=== PATIENT | female | born 1995 | race African-American/Black ===

== ENCOUNTER 2023-01-06 13:41 | Inpatient (IN) | payer OTHER ==
[2023-01-06] MEDS ORDERED: levETIRAcetam 500 MG/5 ML INJECTION VIAL IVPB ONE ×3 (14:59→15:37)
[2023-01-06 15:49] LABS: BASO % 0.7 % (0-2.0); EOS % 3.1 % (0-4.5); HEMATOCRIT 34.6 % (32.4-45.2); HEMOGLOBIN 10.8 GM/dL (10.7-15.3); LYMPH % 31.2 % (8-40); MCH 23.2 pg (25.7-33.7); MCHC 31.2 g/dl (32.0-36.0); MEAN CELL VOLUME 74.4 fl (80-96); MEAN PLT VOLUME 8.7 fl (7.5-11.1); MONO % 5.9 % (3.8-10.2); NEUT % 59.1 % (42.8-82.8); PLATELET COUNT 219 10^3/uL (134-434); RBC 4.65 M/mm3 (3.60-5.2); RDW 19.3 % (11.6-15.6); WHITE BLOOD COUNT 5.9 K/mm3 (4.0-10.0)
[2023-01-06 15:55] LABS: INR 1.17 (0.83-1.09); PROTHROMBIN TIME (PATIENT) 13.6 SEC (9.7-13.0)
[2023-01-06 15:58] LABS: ACTIVATED PTT 31.4 SECONDS (25.2-36.5)
[2023-01-06 16:18] LABS: POTASSIUM 4.3 mmol/L (3.5-5.1)
[2023-01-06 16:20] LABS: CALCIUM 8.7 mg/dL (8.5-10.1)
[2023-01-06 16:21] LABS: ALBUMIN 3.3 g/dl (3.4-5.0)
[2023-01-06 16:24] LABS: CREATININE 0.7 mg/dL (0.55-1.3)
[2023-01-06 16:26] LABS: BILIRUBIN,TOTAL 0.3 mg/dL (0.2-1); TOT PROT 7.5 g/dl (6.4-8.2)
[2023-01-06] MEDS ORDERED: LORazepam 2 MG/ML SDV VIAL IVPUSH ONE (16:57)
[2023-01-06] MEDS ORDERED: ONDANSETRON 4 MG/2 ML VIAL IVPUSH PRN (17:52)
[2023-01-06 20:18] LABS: EPI CELLS 20 /uL (0-25.1); HYALINE CASTS 0 /uL (0-3.1); URINE APPEARANCE CLEAR; URINE BACTERIA 211 /uL (0-1359); URINE BILIRUBIN NEGATIVE (NEGATIVE); URINE COLOR YELLOW; URINE GLUCOSE (UA) NEGATIVE (NEGATIVE); URINE KETONE NEGATIVE (NEGATIVE); URINE LEUK ESTERASE NEGATIVE (NEGATIVE); URINE NITRITE NEGATIVE (NEGATIVE); URINE PROTEIN NEGATIVE (NEGATIVE); URINE RBC 65 /uL (0-23.9); URINE WBC 19 /uL (0-25.8)
[2023-01-06 20:59] LABS: COCAINE, UR NEGATIVE (NEGATIVE); OPIATES, URI NEGATIVE (NEGATIVE); URINE AMPHETAMINES NEGATIVE (NEGATIVE)
[2023-01-06 21:00] LABS: METHADONE, UR NEGATIVE (NEGATIVE); PHENCYCLIDINE,URINE NEGATIVE (NEGATIVE); URINE BARBITURATES NEGATIVE (NEGATIVE)
[2023-01-06 21:04] LABS: URINE BENZODIAZEPINES POSITIVE (NEGATIVE)
[2023-01-06] MEDS ORDERED: VALPROATE SODIUM 250 MG/5 ML UNIT DOSE CUP PO SCH (22:00)
[2023-01-06] MEDS ORDERED: ACETAMINOPHEN 500 MG TABLET (FP) PO PRN (22:36)
[2023-01-06] MEDS ORDERED: hydrOXYzine PAMOATE 50 MG CAPSULE (FP) ONE (22:37)
[2023-01-06] MEDS ORDERED: DIVALPROEX SODIUM 500 MG TABLET E.C. ONE (22:37)
[2023-01-06] MEDS ORDERED: QUEtiapine FUMARATE 100 MG TABLET (FP) ONE (22:37)
[2023-01-06] MEDS ORDERED: ACETAMINOPHEN 500 MG TABLET (FP) ONE (22:39)
[2023-01-06] MEDS: DIVALPROEX SODIUM 500 MG TABLET E.C. PO SCH (22:45)
[2023-01-06] MEDS: QUEtiapine FUMARATE 200 MG TABLET PO SCH (22:45)
[2023-01-06] MEDS: hydrOXYzine PAMOATE 50 MG CAPSULE (FP) PO SCH (22:45)
[2023-01-06] MEDS: OXcarbazepine 300 MG TABLET (UD) PO SCH (22:59)
[2023-01-07 03:24] VITALS: BMI 39.0
[2023-01-07 08:22] LABS: BASO % 0.4 % (0-2.0); EOS % 4.8 % (0-4.5); HEMATOCRIT 32.7 % (32.4-45.2); HEMOGLOBIN 10.1 GM/dL (10.7-15.3); LYMPH % 46.1 % (8-40); MCH 23.3 pg (25.7-33.7); MCHC 30.8 g/dl (32.0-36.0); MEAN CELL VOLUME 75.6 fl (80-96); MEAN PLT VOLUME 9.3 fl (7.5-11.1); MONO % 5.4 % (3.8-10.2); NEUT % 43.3 % (42.8-82.8); PLATELET COUNT 243 10^3/uL (134-434); RBC 4.32 M/mm3 (3.60-5.2); RDW 18.9 % (11.6-15.6); WHITE BLOOD COUNT 5.9 K/mm3 (4.0-10.0)
[2023-01-07 08:37] LABS: POTASSIUM 4.4 mmol/L (3.5-5.1)
[2023-01-07 08:40] LABS: CALCIUM 8.8 mg/dL (8.5-10.1)
[2023-01-07 08:41] LABS: ALBUMIN 2.9 g/dl (3.4-5.0); BLOOD UREA NITROGEN 9.8 mg/dL (7-18); MAGNESIUM 2.4 mg/dL (1.8-2.4)
[2023-01-07 08:43] LABS: CREATININE 0.7 mg/dL (0.55-1.3); PHOSPHOROUS 4.8 mg/dL (2.5-4.9)
[2023-01-07 08:45] LABS: BILIRUBIN,TOTAL 0.3 mg/dL (0.2-1); TOT PROT 6.8 g/dl (6.4-8.2)
[2023-01-07] MEDS: DIVALPROEX SODIUM 500 MG TABLET E.C. PO SCH ×3 (13:20→22:26)
[2023-01-07] MEDS: hydrOXYzine PAMOATE 50 MG CAPSULE (FP) PO SCH ×3 (13:20→22:26)
[2023-01-07] MEDS: ENOXAPARIN NA (PORCINE) 40 MG/0.4 ML DISP.SYRIN SQ SCH (13:20)
[2023-01-07] MEDS: QUEtiapine FUMARATE 100 MG TABLET (FP) PO SCH (13:20)
[2023-01-07] MEDS: OXcarbazepine 300 MG TABLET (UD) PO SCH ×2 (15:23→22:26)
[2023-01-07] MEDS: QUEtiapine FUMARATE 200 MG TABLET PO SCH (22:26)
[2023-01-08] MEDS: hydrOXYzine PAMOATE 50 MG CAPSULE (FP) PO SCH ×2 (06:53→13:50)
[2023-01-08] MEDS: QUEtiapine FUMARATE 100 MG TABLET (FP) PO SCH (06:53)
[2023-01-08] MEDS: DIVALPROEX SODIUM 500 MG TABLET E.C. PO SCH ×2 (06:53→13:50)
[2023-01-08 07:50] LABS: POTASSIUM 4.3 mmol/L (3.5-5.1)
[2023-01-08 07:53] LABS: BLOOD UREA NITROGEN 8.6 mg/dL (7-18); CALCIUM 8.6 mg/dL (8.5-10.1)
[2023-01-08 07:56] LABS: CREATININE 0.8 mg/dL (0.55-1.3); PHOSPHOROUS 3.9 mg/dL (2.5-4.9); TOT PROT 7.1 g/dl (6.4-8.2)
[2023-01-08 07:58] LABS: BILIRUBIN,TOTAL 0.2 mg/dL (0.2-1)
[2023-01-08] MEDS: ENOXAPARIN NA (PORCINE) 40 MG/0.4 ML DISP.SYRIN SQ SCH (10:21)
[2023-01-08] MEDS: OXcarbazepine 300 MG TABLET (UD) PO SCH (10:23)
[2023-01-08 10:29] VITALS: PULSE 94
[2023-01-08 15:31] VITALS: BP 101/51; RESP 19; TEMP 98.4
[2023-01-08] MEDS ORDERED: CALCIUM CARBONATE 650 MG TABLET PO ONE (16:52)
== END 2023-01-08 18:56 | disposition home or self-care (01) | DRG 53 ==
LOC: JER 13:41 → JERBED 15:12 → OBSVTOIN 17:46 → J4W 01-07 00:13
PROVIDERS: ADMIT Internal Medicine; ATTEND Internal Medicine
DX: G40.909 Epilepsy, unspecified, not intractable, without status epilepticus (principal); A08.4 Viral intestinal infection, unspecified; F12.90 Cannabis use, unspecified, uncomplicated; F99 Mental disorder, not otherwise specified; Z87.820 Personal history of traumatic brain injury
CPT/HCPCS: 0241U-QW; 36415; 70450-TC; 71045-TC-FY; 80053; 80156; 80164; 80177; 80183; 80185; 80307; 81003; 82550; 83605; 83735; 84100; 84146; 84484; 84703; 85025; 85610; 85730; 93005; 93010; 99285-25; G0378